=== PATIENT | female | born 1990 | race Caucasian/White ===

== ENCOUNTER 2021-12-30 14:07 | Inpatient (IN) | payer MEDICAID, SELFPAY ==
[2021-12-30 14:09] VITALS: BP 116/70; PULSE 108; RESP 18; TEMP 36.6; O2SAT 100; BMI 31.7
[2021-12-30] MEDS: hyDROXYzine 25 mg Capsule 50 MG PO (15:11)
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
[2021-12-30] MEDS: buprenorphine-naloxone 4-1 mg Film 2 EACH SUBLINGUAL (19:57)
[2021-12-30] MEDS: paliperidone ER 3 mg Tablet PO (19:57)
[2021-12-30 22:00] VITALS: BP 132/82; PULSE 98; RESP 18; TEMP 36.4; O2SAT 97
--- NOTE | 2021-12-31 01:03 | PC.NURSE ---
Patient is currently resting with eyes closed at this time. No signs of distress present. During earlier shift assessment patient denied SI/HI or AVH at that time. Did report anxiety with a rating of 6/10 and depression at a 5/10. Stated she has been up for 5 days related to use of Meth/Fentanyl IV. Stated she uses both drugs normally at least 4 times a day. Reports overdosing 5x in her past. Denied pain. Stated last BM was on 12/29 and was of watery consistency. Denies any nausea or loose stools since being admitted to floor. Encouraged patient to come to staff with any concerns.
[2021-12-31 06:00] VITALS: BP 105/71; PULSE 74; RESP 18; TEMP 36.7; O2SAT 98
[2021-12-31] MEDS: buprenorphine-naloxone 4-1 mg Film 2 EACH SUBLINGUAL ×2 (08:49→17:35)
[2021-12-31 14:00] VITALS: BP 109/73; PULSE 82; RESP 18; TEMP 36.6; O2SAT 99
--- NOTE | 2021-12-31 16:16 | W.PM.NPUPNS ---
Subjective NPU Subjective: Patient is a 31-year-old white female with history of opiate dependence, methamphetamine dependence and depression admitted with auditory hallucinations and suicidal ideation. The patient had reported feeling tired and stated that she was having some itching. She reports that she had previously taken Suboxone before without any complications. She had reported some relief of opiate withdrawal. She reports no feelings of hopelessness today but reported still feeling depressed. Staff notes the patient had isolated herself on the milieu and had shown little little interest in leaving her room. She had endorsed desire to consider inpatient substance abuse rehabilitation if possible. The patient had reported some improvement in sleep last night with the Seroquel. The patient did also acknowledged having previously crashed after significant methamphetamine use with reports of her last opiate use having occurred approximately 36 hours ago. Mental Status Exam MSE Comments: Patient is a casually dressed white female who appeared her stated age who appeared somewhat tired during the interview. She had poor eye contact and adequate hygiene.. Her mood was described as depressed. Her affect was mood congruent and restricted in range. Her thought process was linear logical and goal-directed. Her thought content showed no evidence of delusional thinking. She denied any homicidal ideation. She endorsed suicidal ideation with no active plan. Her attention and concentration appeared adequate. Her insight and judgment were poor. Her impulse control appeared impaired. Vitals/I&O/Wt Last Vital Signs Temp 98 F 12/31/21 14:00 Pulse 82 12/31/21 14:00 Resp 18 12/31/21 14:00 BP 109/73 12/31/21 14:00 Pulse Ox 99 12/31/21 14:00 O2 Del Method 12/31/21 14:00 Weight last 48 hrs Weight 83.915 kg A&P Assessment and plan (1) Psychotic disorder: (2) Opioid dependence: (3) Depression, unspecified: (4) Methamphetamine dependence: Plan Patient is a 31-year-old white female with opiate dependence and methamphetamine dependence with a history of depressed mood and psychotic symptoms that have been exacerbated by her continued substance use. 1. continue Suboxone 16mg/day for opioid dependence. 2. Continue Invega 3 mg at night to target psychosis. 3.. ? Encourage individual, group and milieu therapy 4? Continue q-15 minute check for safety 5.? Recommend sober living treatment at the highest level of care to which the patient is willing to commit. 6. Prozac 20mg daily to target depression and anxiety. Involuntary Hold Information 96 Hour Hold: 96 Hour Involuntary Admission: Yes 96 Hour Hold Ending Date: 01/05/22 96 Hour Hold Ending Time: 13:30 Attestations NPU Medical Necessity Statement*: Inpatient hospitalization is medically necessary and the clinically appropriate intervention at this time. We will monitor medications and make changes as indicated. Patient will be in the hospital for over two midnights. Likely length of stay is five to seven days. Coding Level of Care Code Established Pt Acute Time Analysis Clerk for Leonorag Fwd Patient Type Established History Problem Focused Exam Problem Focused Medical Decision Making Straight Forward Diagnoses Psychotic disorder F29 Opioid dependence F11.20 Depression, unspecified F32.A Methamphetamine dependence F15.20
[2021-12-31] MEDS: paliperidone ER 3 mg Tablet PO (17:35)
[2021-12-31 20:03] VITALS: BP 107/72; PULSE 82; RESP 15; O2SAT 97
[2021-12-31] MEDS: acetaminophen 325 mg Tablet 650 MG PO (20:25)
[2021-12-31] MEDS: trazodone 50 mg Tablet PO (20:26)
[2021-12-31] MEDS: hyDROXYzine 25 mg Capsule 50 MG PO (20:26)
[2022-01-01 06:00] VITALS: BP 111/72; PULSE 88; RESP 16; O2SAT 96
[2022-01-01] MEDS: buprenorphine-naloxone 4-1 mg Film 2 EACH SUBLINGUAL ×2 (08:26→17:42)
[2022-01-01] MEDS: fluoxetine 20 mg Capsule PO (08:27)
[2022-01-01] MEDS: diphenhydrAMINE 50 mg Capsule PO (09:54)
--- NOTE | 2022-01-01 13:07 | P.NPUPN_ITS ---
Subjective NPU Subjective: Patient is a 31-year-old white female with history of opiate dependence, methamphetamine dependence and depression admitted with auditory hallucinations and suicidal ideation. Patient had reported continued auditory hallucinations. She had reported itching more. She had reported some excess fatigue and tiredness along with depressed mood. She had reported continued sadness and stated that she continued to be hopeful about inpatient treatment for psychiatric issues and addiction issues. She had reported itching on her stomach but reported a relief of opiate withdrawal symptoms with the initiation of Suboxone. She continued to isolate on the milieu and stayed in her room. She had reported some difficulties with sleeping. She reported no side effects from Prozac currently. She reported that the voices had been less intense already with the initiation of Invega. She had again acknowledged a significant history of IV fentanyl and methamphetamine use. Mental Status Exam MSE Comments: Patient is a casually dressed white female who appeared her stated age who appeared sedated during the interview. There was pruritic hyperkeratotic lesions on her abdomen that she was repeatedly scratching throughout much of the interview. She had poor eye contact and adequate hygiene. Her mood was described as depressed. Her affect was mood congruent and restricted in range. Her thought process was linear logical and goal- directed. Her thought content showed no evidence of delusional thinking. She denied any homicidal ideation. She endorsed suicidal ideation with no active plan. Her attention and concentration appeared adequate. Her insight and judgment were poor. Her impulse control appeared impaired. Vitals/I&O/Wt Last Vital Signs Temp 98 F 12/31/21 14:00 Pulse 88 01/01/22 06:00 Resp 16 01/01/22 06:00 BP 111/72 01/01/22 06:00 Pulse Ox 96 01/01/22 06:00 O2 Del Method 12/31/21 14:00 Weight last 48 hrs Weight 83.915 kg A&P Assessment and plan (1) Psychotic disorder: (2) Opioid dependence: (3) Depression, unspecified: (4) Methamphetamine dependence: Plan Patient is a 31-year-old white female with opiate dependence and methamphetamine dependence with a history of depressed mood and psychotic symptoms that have been exacerbated by her continued substance use. 1. continue Suboxone 16mg/day for opioid dependence. 2. Continue Invega 3 mg at night to target psychosis, continue Prozac 20mg in am. Ordering labs, may consider medical consult regarding pruritic rash, abdomen, rule out allergy. 3.. ? Encourage individual, group and milieu therapy 4? Continue q-15 minute check for safety 5.? Recommend sober living treatment at the highest level of care to which the patient is willing to commit. 6. Prozac 20mg daily to target depression and anxiety. Involuntary Hold Information 96 Hour Hold: 96 Hour Involuntary Admission: Yes 96 Hour Hold Ending Date: 01/05/22 96 Hour Hold Ending Time: 13:30 Attestations NPU Medical Necessity Statement*: Inpatient hospitalization is medically necessary and the clinically appropriate intervention at this time. We will monitor medications and make changes as indicated. Patient will be in the hospital for over two midnights. Likely length of stay is five to seven days. Coding Level of Care Code Established Pt Acute Straddle Bug Operator for Leonorag Fwd Patient Type Established History Problem Focused Exam Problem Focused Medical Decision Making Straight Forward Diagnoses Psychotic disorder F29 Opioid dependence F11.20 Depression, unspecified F32.A Methamphetamine dependence F15.20
[2022-01-01 13:24] VITALS: BP 109/66; PULSE 84; RESP 16; TEMP 36.6; O2SAT 97
[2022-01-01 15:25] LABS: Rapid Strep A Test Negative (Negative)
[2022-01-01] MEDS: paliperidone ER 3 mg Tablet PO (17:42)
[2022-01-01 19:44] VITALS: BP 99/62; PULSE 102; RESP 16; TEMP 36.6; O2SAT 95
[2022-01-02 05:33] VITALS: BP 109/75; PULSE 96; RESP 16; TEMP 37.2; O2SAT 95
[2022-01-02] MEDS: buprenorphine-naloxone 4-1 mg Film 2 EACH SUBLINGUAL ×2 (08:56→18:43)
[2022-01-02] MEDS: fluoxetine 20 mg Capsule PO (08:56)
[2022-01-02 14:00] VITALS: BP 108/75; PULSE 84; RESP 16; TEMP 36.8; O2SAT 97
--- NOTE | 2022-01-02 14:55 | W.PM.NPUPNS ---
Subjective NPU Subjective: Patient is a 31-year-old white female with history of opiate dependence, methamphetamine dependence and depression admitted with auditory hallucinations and suicidal ideation. Patient endorses no longer hearing voices. She currently reports depressed mood. She reported no cravings and no withdrawal symptoms from opiates. She had reported continued low energy and low motivation. She had expressed desire to go inpatient for substance abuse given her IV drug history and the duration of her addiction to both opiates and methamphetamine. She had not endorsed any itching throughout her body with the addition of Benadryl. Patient did not endorse any thoughts of hurting herself or others at this time. Mental Status Exam MSE Comments: Patient is a casually dressed white female who appeared her stated age who appeared sedated during the interview. There was pruritic hyperkeratotic lesions on her abdomen that were present. She had poor eye contact and adequate hygiene. Her speech was normal in regards to rate rhythm and prosody. Her mood was described as depressed. Her affect was mood congruent and restricted in range. Her thought process was linear logical and goal-directed. Her thought content showed no evidence of delusional thinking. She denied any homicidal ideation. She endorsed suicidal ideation with no active plan. She did not appear to be responding to internal stimuli. Her attention and concentration appeared adequate. Her insight and judgment were poor. Her impulse control appeared impaired. Vitals/I&O/Wt Last Vital Signs Temp 98.9 F 01/02/22 05:33 Pulse 96 01/02/22 05:33 Resp 16 01/02/22 05:33 BP 109/75 01/02/22 05:33 Pulse Ox 95 01/02/22 05:33 O2 Del Method 01/02/22 05:33 Weight last 48 hrs Weight 89.176 kg A&P Assessment and plan (1) Psychotic disorder: (2) Opioid dependence: (3) Depression, unspecified: (4) Methamphetamine dependence: Plan Patient is a 31-year-old white female with opiate dependence and methamphetamine dependence with a history of depressed mood and psychotic symptoms that have been exacerbated by her continued substance use. 1. continue Suboxone 16mg/day for opioid dependence. 2. Continue Invega 3 mg at night to target psychosis, increase prozac to 30mg in am. Continue benadryl for itching. 3.. ? Encourage individual, group and milieu therapy 4? Continue q-15 minute check for safety 5.? Recommend sober living treatment at the highest level of care to which the patient is willing to commit. 6. Prozac 20mg daily to target depression and anxiety. Involuntary Hold Information 96 Hour Hold: 96 Hour Involuntary Admission: Yes 96 Hour Hold Ending Date: 01/05/22 96 Hour Hold Ending Time: 13:30 Attestations NPU Medical Necessity Statement*: Inpatient hospitalization is medically necessary and the clinically appropriate intervention at this time. We will monitor medications and make changes as indicated. Patient will be in the hospital for over two midnights. Likely length of stay is five to seven days. Coding Level of Care Code Established Pt Acute Associate Software Application Engineer for Andrea Granado Patient Type Established History Problem Focused Exam Problem Focused Medical Decision Making Straight Forward Diagnoses Psychotic disorder F29 Opioid dependence F11.20 Depression, unspecified F32.A Methamphetamine dependence F15.20
[2022-01-02] MEDS: paliperidone ER 3 mg Tablet PO (18:42)
[2022-01-02 21:29] VITALS: BP 117/81; PULSE 89; RESP 16; TEMP 36.4; O2SAT 99
[2022-01-02] MEDS: docusate sodium 100 mg Capsule PO (21:35)
[2022-01-02] MEDS: ibuprofen 600 mg Tablet PO (21:35)
[2022-01-03 06:00] VITALS: BP 103/71; PULSE 84; RESP 16; TEMP 36.7; O2SAT 95
[2022-01-03] MEDS: fluoxetine 20 mg Capsule PO (09:00)
[2022-01-03] MEDS: fluoxetine 10 mg Capsule PO (09:00)
[2022-01-03] MEDS: buprenorphine-naloxone 4-1 mg Film 2 EACH SUBLINGUAL ×2 (09:01→17:17)
[2022-01-03 14:00] VITALS: BP 109/73; PULSE 94; RESP 16; TEMP 36.7; O2SAT 96
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
[2022-01-03] MEDS: paliperidone ER 3 mg Tablet PO (17:17)
[2022-01-03] MEDS: trazodone 50 mg Tablet PO (20:43)
[2022-01-03] MEDS: diphenhydrAMINE 50 mg Capsule PO (20:43)
--- NOTE | 2022-01-03 20:45 | PC.NURSE ---
Patient reporting a headache and rating it a 8/10. States it is throbbing. PRN Ibuprofen given. Also requested something for anxiety with a rating of 7/10. Benadryl po given as ordered. Requested trazodone for sleep. Given as ordered.
[2022-01-03] MEDS: ibuprofen 600 mg Tablet PO (20:48)
--- NOTE | 2022-01-03 21:30 | PC.NURSE ---
Patient reports her headache is better with a rating of 2/10. Also reports decrease in anxiety. Resting in bed at this time.
[2022-01-03 21:54] VITALS: BP 97/68; PULSE 92; RESP 20; TEMP 36.5; O2SAT 100
[2022-01-04] MEDS: fluoxetine 20 mg Capsule PO (08:45)
[2022-01-04] MEDS: fluoxetine 10 mg Capsule PO (08:45)
[2022-01-04] MEDS: buprenorphine-naloxone 4-1 mg Film 2 EACH SUBLINGUAL (08:45)
[2022-01-04 12:35] VITALS: BP 97/68; PULSE 92; RESP 20; TEMP 36.5; O2SAT 100
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
== END 2022-01-04 15:00 | disposition home or self-care (01) | DRG 897 ==
PROVIDERS: Admitting Provider Psychiatry & Neurology Psychiatry; Visit Provider Psychiatry & Neurology Psychiatry
DX: F15.251 Other stimulant dependence with stimulant-induced psychotic disorder with hallucinations (principal); F11.20 Opioid dependence, uncomplicated; R45.851 Suicidal ideations; F32.A Depression, unspecified; Z59.00 Homelessness unspecified; Z81.3 Family history of other psychoactive substance abuse and dependence
CPT/HCPCS: 87081; 87880; 97150; 97165; J0573; Q0163